=== PATIENT | male | born 1975 | race Caucasian/White ===

== ENCOUNTER 2018-06-14 09:35 | Emergency (ER) | payer MEDICAID ==
[~2018-06-14] VITALS: Ht 180.3 cm; Wt 1129.0 kg
--- NOTE | ~2018-06-14 | CON ---
[place], [place] REPORT OF CONSULTATION NAME: TOM SIDDIQI UNIT #: [id number] ROOM: DOCTOR: CHRISSY ERAZO MD BIRTHDATE: [birth year] DOS: 06/14/2018 REASON FOR CONSULTATION: Chest pain and elevated troponin. HISTORY OF PRESENT ILLNESS: The patient is a 42-year-old patient with history of coronary artery disease, non-morbid obesity, was presented to the Emergency Room for intermittent chest pains. He had a history of coronary artery disease, multiple stents, the first stent after his myocardial infarction was about 5 years ago, since then he had a total of 5 stents. Apparently 2 out of 5 stents were collapsed per him and the last heart catheterization was about 2 years ago and these were all done in [place], reports are not available. He had a stress test about a week ago, which was abnormal and he was recommended cardiac catheterization and also possible heart surgery, but he did not pursue it and he is in [place] for his work. He complained of intermittent chest pains, midsternal area like a heaviness and tightness with exertion, relieved with rest. No radiation. No associated nausea, diaphoresis. No fever and chills. No PND, no orthopnea. No nausea, vomiting, or diarrhea. No bladder or bowel symptoms. REVIEW OF SYSTEMS: Review of 8 systems negative except as mentioned above. PAST MEDICAL HISTORY: 1. Coronary artery disease, status post myocardial infarction about 5 years ago, status post multiple PCIs with a total of 5 stents. Last cardiac catheterization was about 2 years ago. Per the patient, records not available. 2. Non-morbid obesity. PAST SURGICAL HISTORY: History of multiple stents. SOCIAL HISTORY: The patient does smoke, does not use illicit drugs, does not drink alcohol. FAMILY HISTORY: Noncontributory. HOME MEDICATIONS: Reviewed. PHYSICAL EXAMINATION: VITAL SIGNS: Blood pressure 129/84, pulse 71, respiratory rate 18. GENERAL: Alert, comfortable, in no acute distress. HEENT: Pupils are round and equal. No jaundice. NECK: Supple, no distended neck veins, no carotid bruit. CHEST: Symmetrical, nontender. LUNGS: Clear to auscultation bilaterally. HEART: Regular rate and rhythm, no S3. ABDOMEN: Benign, nontender. Bowel sounds normal. EXTREMITIES: Showed no edema. Distal pulses palpable. SKIN: Warm and dry. No cyanosis, no clubbing. RECTAL: Deferred. GENITOURINARY: Deferred. NEUROLOGIC: The patient is alert with good mood and affect. [place], [place] REPORT OF CONSULTATION NAME: TOM SIDDIQI UNIT #: [id number] ROOM: DOCTOR: CHRISSY ERAZO MD BIRTHDATE: [birth year] REVIEW OF THE DIAGNOSTIC TESTS: His labs and EKG reviewed. EKG showed normal sinus rhythm with possible old inferior infarction. His cardiac troponins were reviewed. Second troponin was slightly elevated. IMPRESSION: 1. Acute coronary syndrome. 2. Coronary artery disease, status post multiple stents, total of 5 stents, last cardiac catheterization was about 2 years ago, the patient had 2 occluded stents per him. Reports not available. 3. Tobacco smoking. 4. Non-morbid obesity. RECOMMENDATIONS: Recommend admission to the hospital and continue his aspirin and other treatment with Lovenox and beta blockers. I would recommend cardiac catheterization tomorrow due to his symptoms and abnormal stress test about a week ago and he has an extensive coronary artery disease history. Risks and benefits of the cardiac catheterization, possible angioplasty stent, possible bypass surgery discussed and the patient is agreeable. I would recommend admitting the patient to the [facility] because of his symptoms and also need for cardiac catheterization tomorrow. Above treatment discussed with the patient and all questions answered. Case was discussed with the Emergency Room physician, Dr. Henderson. No family was at bedside at the time of examination. Risk factor modification to quit smoking, diet, exercise and weight loss was discussed. CHRISSY ERAZO MD CM:CONSTR:REPORT OF CONSULTATION 1449 06/15/18 0143 interface
--- NOTE | ~2018-06-14 | EKG ---
[place], [place] ELECTROCARDIOGRAM REPORT NAME: TOM SIDDIQI UNIT #: [id number] ROOM: DOCTOR: EPIPHANY DRAFT REPORT BIRTHDATE: [birth year] [facility] Test Date: 2018-06-14 Test Time: 09:36:15 Pat Name: TOM SIDDIQI Department: Room: Gender: Roofing Contractor: : 1975 Requested By: NAZARIO CABRALES Order Number: [id number] Reading MD: Tarun Bernal Measurements Intervals [place] Rate: 100 P: 77 ID: [id number] QRS: 77 QRSD: 103 T: 9 QT: 333 QTc: 430 Interpretive Statements Sinus tachycardia Left atrial enlargement Probable inferior infarct, old Baseline wander in lead(s) V1 No previous ECG available for comparison Electronically Signed On 06-16-2018 5:49:20 PDT by Tarun Bernal CM:EKGRPT:ELECTROCARDIOGRAM REPORT 0549 NAZARIO ARMANDO DRAFT REPORT NAZARIO CABRALES M.D.
--- NOTE | ~2018-06-14 | EKG ---
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
[2018-06-14 09:49] LABS: BASO # 0.1 10*3/uL (0.0-0.1); BASO % 1.2 % (0.0-1.0); EOS # 0.4 10*3/uL (0.0-0.4); EOS % 7.3 % (1.0-4.0); HEMATOCRIT 43.5 % (42.0-52.0); HEMOGLOBIN 14.8 g/dl (14.0-18.0); LYMPH # 1.4 10*3/uL (1.3-4.4); LYMPH % 27.4 % (27.0-41.0); MEAN CELL VOLUME 90.4 fl (80.0-94.0); MEAN CORPUSCULAR HGB 30.8 pg (27.0-31.0); MEAN PLATELET VOLUME 9.6 fl (9.6-12.3); MONO # 0.6 10*3/uL (0.1-1.0); MONO % 11.2 % (3.0-9.0); NEUT # 2.7 10*3/uL (2.3-7.9); NEUT % 52.7 % (47.0-73.0); PLATELET COUNT AUTOMATED 169 10*3/uL (130-400); RED BLOOD COUNT 4.81 10*6/uL (4.50-5.90); WHITE BLOOD COUNT 5.1 10*3/uL (4.8-10.8)
[2018-06-14 09:59] LABS: INTERNATIONAL NORM RATIO 0.9 (2.0-3.5)
[2018-06-14 10:05] LABS: ALBUMIN 3.7 gm/dl (3.1-4.5); ALKALINE PHOSPHATASE 108 U/L (45-117); BUN 12 mg/dl (7-24); CHLORIDE 106 mmol/L (98-107); CREATININE 1.07 mg/dL (0.70-1.30); POTASSIUM 3.8 mmol/L (3.5-5.1); SGOT/AST 23 IU/L (3-35); SGPT/ALT 40 U/L (12-78); SODIUM 140 mmol/L (136-145); TOTAL PROTEIN 6.4 gm/dL (6.4-8.2)
[2018-06-14] MEDS ORDERED: ASPIRIN ADULT L81 M1 PO (10:08)
[2018-06-14] MEDS ORDERED: PLAVIX75 M1 PO (10:08)
[2018-06-14] MEDS ORDERED: ZESTRIL2.5 MG PO (10:09)
[2018-06-14] MEDS ORDERED: LIPITOR40 MG PO (10:09)
== END 2018-06-14 15:57 | disposition other institution (70) ==
LOC: ED 09:35
PROVIDERS: Emergency Medicine
DX: I21.4 Non-ST elevation (NSTEMI) myocardial infarction (principal); Z88.0 Allergy status to penicillin; Z79.899 Other long term (current) drug therapy; Z79.82 Long term (current) use of aspirin